=== PATIENT | female | born 1980 | race Two or more races ===

== ENCOUNTER 2024-09-30 08:33 | Emergency (ER) | payer MEDICAID, OTHER ==
[~2024-09-30] VITALS: Ht 167.6 cm; Wt 114.9 kg
--- NOTE | 2024-09-30 09:28 | DVH ---
CHEST RADIOGRAPH Indication:COUGH Technique: Frontal and lateral view of the chest was obtained Comparison: None FINDINGS: Lines and Tubes: None Lungs: Clear Pleura: No effusion. No pneumothorax. Cardiomediastinal contours: Unremarkable Bones: Unremarkable IMPRESSION: No evidence of acute disease.
[2024-09-30 09:38] LABS: Basophils # (auto) 0 10 ^3/uL (0-0.2); Basophils % (auto) 0.4 % (0.0-2.0); Eosinophils # (auto) 0.1 10 ^3/uL (0-0.8); Eosinophils % (auto) 1.2 % (0.0-7.0); Hematocrit 41.3 % (36.0-46.0); Hemoglobin 13.9 g/dL (12.2-16.2); Lymphocytes # (auto) 1.8 10 ^3/uL (0.4-5.4); Lymphocytes % (auto) 15.8 % (10.0-50.0); Mean Corpuscular Hemoglobin 28.6 pg (28.0-32.0); Mean Corpuscular Hgb Conc. 33.6 g/dL (32.0-36.0); Monocytes # (auto) 0.5 10 ^3/uL (0-1.3); Monocytes % (auto) 4.2 % (0.0-12.0); Neutrophils # (auto) 8.8 10 ^3/uL (1.6-8.6); Neutrophils % (auto) 78.4 % (37.0-80.0); Nucleated Red Blood Cells % 0.1 %; Platelet Count (auto) 220 10^3/uL (140-450); Red Blood Cells 4.86 10^6/uL (4.0-5.20); Red Cell Distribution Width 15.2 % (11.8-14.3); White Blood Cell 11.2 10^3/uL (4.4-10.8)
--- NOTE | 2024-09-30 09:41 | ED.PDOC ---
SOB-HPI HPI Comments A 44 YEAR OLD FEMALE PRESENTS TO THE ED WITH COMPLAINT OF FLU-LIKE SYMPTOMS. PATIENT STATES SHE HAS BEEN EXPERIENCING A COUGH, CONGESTION, SORE THROAT, AND BODY ACHES FOR THE PAST 4 DAYS. PATIENT DENIES FEVER, CHILLS, SHORTNESS OF BREATH, CHEST PAIN, ABDOMINAL PAIN, NAUSEA, VOMITING, HEADACHE, OR OTHER CO MPLAINTS. NO OTHER SYMPTOMS OR MODIFYING FACTORS AT THIS TIME. PATIENT IS ALERT, ORIENTED X 4, AND HAS STEADY GAIT. Chief Complaint: Cough Time Seen by MD: 08:56 Reviewed notes: Nurses Notes, Medications, Allergies Information Source: Patient Mode of Arrival: Ambulatory Severity: Moderate Timing: Days Duration: Since onset, Days Context: Spontaneous Onset PE Risk Factors: None History of: None Prehospital treatment: None Modifying Factors: Nothing Associated Signs and Symptoms: Cough, Nasal Congestion, Sore Throat If cough with SOB: Productive Past Medical History PAST MEDICAL HISTORY: Denies Surgical History: Denies all surgeries HEAD OF TRANSPORT LOGISTICS History: No Pertinent HEAD OF TRANSPORT LOGISTICS History Family History Family History: Reviewed,noncontributory to illness Social History Smoker: Non-Smoker Alcohol: Denies ETOH Use Drugs: Denies Drug Use Lives In: Home Constitutional: reports: fever; denies: chills, diaphoresis, fatigue, malaise, sweats, weakness, others EENTM: reports: nose congestion, throat pain, throat swelling; denies: blurred vision, double vision, ear bleeding, ear discharge, ear drainage, ear pain, ear ringing, eye pain, eye redness, hearing loss, mouth pain, mouth swelling, nasal discharge, nose bleeding, nose pain, photophobia, tearing, voice changes, others Respiratory: reports: cough; denies: hemoptysis, orthopnea, SOB at rest, shortness of breath, SOB with excertion, stridor, wheezing, others Cardiovascular: denies: chest pain, dizzy spells, diaphoresis, Dyspnea on exertion, edema, irregular heart beat, left arm pain, lightheadedness, palpitations, PND, syncope, others Gastrointestinal: denies: abdomen distended, abdominal pain, blood streaked bowels, constipated, diarrhea, dysphagia, difficulty swallowing, hematemesis, melena, nausea, poor appetite, poor fluid intake, rectal bleeding, rectal pain, vomiting, others Genitourinary: denies: abnormal vagina bleeding, burning, dyspareunia, dysuria, flank pain, frequency, hematuria, incontinence, pain, , vagina discharge, urgency, others Neurological: denies: dizziness, fainting, headache, left sided numbness, left sided weakness, numbness, paresthesia, pre-existing deficit, right sided numbness, right sided weakness, seizure, speech problems, tingling, tremors, weakness, others Musculoskeletal: denies: back pain, gout, joint pain, joint swelling, muscle pain, muscle stiffness, neck pain, others Integumetry: denies: bruises, change in color, change in hair/nails, dryness, laceration, lesions, lumps, rash, wounds, others Allergic/Immunocompromised: denies: Difficulty Healing, Frequent Infections, Hives, Itching, others Hematologic/Lymphatic: denies: anemia, blood clots, easy bleeding, easy bruising, swollen glands, others Endocrine: denies: excessive hunger, excessive sweating, excessive thirst, excessive urination, flushing, intolerance to cold, intolerance to heat, unexplained weight gain, unexplained weight loss, others Psychiatric: denies: anxiety, bipolar disorder, depression, hopeless, panic disorder, schizophrenia, sleepless, suicidal, others All Other Systems: Reviewed and Negative Physical Exam General Appearance: No Apparent Distress, Obese HEENT: PERRL/EOMI, Pharyngeal Erythema (TONSILLAR SWELLING, NO EXUDATES. ), TMs Normal Neck: Full Range of Motion, Non-Tender, Normal, Normal Inspection Respiratory: Chest Non-Tender, Expiration, No Accessory Muscle Use, No Respiratory Distress, Rhonchi Cardiovascular: No Edema, No JVD, No Murmur, No Gallop, Normal Peripheral Pulses, Regular Rate/Rhythm Breast Exam: Deferred Gastrointestinal: No Organomegaly, Non Tender, No Pulsatile Mass, Normal Bowel Sounds, Soft Genitalia: Deferred Pelvic: Deferred Rectal: Deferred Extremities: No calf tenderness, Normal capillary refill, Normal inspection, Normal range of motion, Non-tender, No pedal edema Musculoskeletal : Apperance: Normal Neurologic: Alert, software requirements engineer II-XII nml as Tested, No Motor Deficits, Normal Affect, Normal Mood, No Sensory Deficits Cerebellar Function: Normal Reflexes: Normal Skin: Dry, Normal Color, Warm Peripheral Pulses: 2+ carotid (R), 2+ carotid (L) Lymphatic: No Adenopathy Was a procedure done? Was a procedure done?: No Differential Dx Differential Diagnosis: Bronchitis, Pneumonia, Sinusitis, Allergic Rhinitis, Otitis Media, Pharyngitis, URI X-Ray, Labs, Meds, VS Vital Signs Date Time Temp Pulse Resp B/P (MAP) Pulse Ox O2 Delivery O2 Flow Rate FiO2 09/30/24 09:56 98.7 98 20 147/94 (111) 98 98.7 09/30/24 09:56 89 20 98 Room Air 09/30/24 09:00 98.7 89 20 147/94 (111) 98 Lab Test 09/30/24 09:22 09/30/24 09:14 Range/Units Influenza Type A Antigen Negative Negative Influenza Type B Antigen Negative Negative SARS-CoV-2 Antigen (Rapid) Negative NEGATIVE White Blood Count 11.2 H 4.4-10.8 10^3/uL Red Blood Count 4.86 4.0-5.20 10^6/uL Hemoglobin 13.9 12.2-16.2 g/dL Hematocrit 41.3 36.0-46.0 % Mean Corpuscular Volume 85.0 80.0-100.0 fL Mean Corpuscular Hemoglobin 28.6 28.0-32.0 pg Mean Corpuscular Hemoglobin Concent 33.6 32.0-36.0 g/dL Red Cell Distribution Width 15.2 H 11.8-14.3 % Platelet Count 220 140-450 10^3/uL Mean Platelet Volume 9.3 6.9-10.8 fL Neutrophils (%) (Auto) 78.4 37.0-80.0 % Lymphocytes (%) (Auto) 15.8 10.0-50.0 % Monocytes (%) (Auto) 4.2 0.0-12.0 % Eosinophils (%) (Auto) 1.2 0.0-7.0 % Basophils (%) (Auto) 0.4 0.0-2.0 % Neutrophils # (Auto) 8.8 H 1.6-8.6 10 ^3/uL Lymphocytes # (Auto) 1.8 0.4-5.4 10 ^3/uL Monocytes # (Auto) 0.5 0-1.3 10 ^3/uL Eosinophils # (Auto) 0.1 0-0.8 10 ^3/uL Basophils # (Auto) 0 0-0.2 10 ^3/uL Nucleated Red Blood Cells 0.1 % Sodium Level 141 136-145 mmol/L Potassium Level 4.0 3.5-5.1 mmol/L Chloride Level 108 H 98-107 mmol/L Carbon Dioxide Level 28 20-31 mmol/L Anion Gap 5 5-15 Blood Urea Nitrogen 8 L 9-23 mg/dL Creatinine 0.90 0.550-1.02 mg/dL Glomerular Filtration Rate Calc 81 >90 mL/min BUN/Creatinine Ratio 8.9 L 10.0-20.0 Serum Glucose 95 74-106 mg/dL Calcium Level 9.9 8.7-10.4 mg/dL Total Bilirubin 0.4 0.2-1.0 mg/dL Aspartate Amino Transferase (AST) 11 L 13-40 U/L Alanine Aminotransferase (ALT) 10 7-40 U/L Alkaline Phosphatase 77 46-116 U/L Total Protein 7.7 5.7-8.2 g/dL Albumin 4.5 3.2-4.8 g/dL Current Medications Medications (Trade) Dose Ordered Sig/Chas Route Start Time Stop Time Status Last Admin Ceftriaxone Sodium (Rocephin) 1,000 mg ONCE ONCE IM 09/30/24 10:00 09/30/24 10:01 DC 09/30/24 10:09 CHEST RADIOGRAPH Indication:COUGH Technique: Frontal and lateral view of the chest was obtained Comparison: None FINDINGS: Lines and Tubes: None Lungs: Clear Pleura: No effusion. No pneumothorax. Cardiomediastinal contours: Unremarkable Bones: Unremarkable IMPRESSION: No evidence of acute disease. ATED BY: HARLEY WHITE MD DICTATED DATE/TIME: 09/30/24923 SIGNED BY: HARLEY WHITE MD SIGNED DATE/TIME: 09/30/24923 CC: X-Ray, Labs, Meds, VS Comment LABS ORDERED: CBC, CMP, UA, COVID 19 ANTIGEN, INFLUENZA A/B REVIEWED AND INTERPRETED RESULTS: NEGATIVE TREATMENT: ROCEPHIN 1 G IM Images Reviewed?: Images reviewed and evaluated by me Time of 1ST Reevaluation: 11:00 Reevaluation 1ST: Improved Patient Education/Counseling: Diagnosis, Treatment, Need For Follow Up Family Education/Counseling: Diagnosis, Treatment, Need For Follow Up Medical Screening: No EMC Exist At This Time Departure 1 Departure Time of Disposition: 11:00 Impression: Primary Impression: Acute bronchitis Qualified Codes: J20.9 - Acute bronchitis, unspecified Additional Impression: Acute tonsillitis Qualified Codes: J03.90 - Acute tonsillitis, unspecified Disposition: HOME / SELF CARE / HOMELESS Condition: Stable Additional Instructions: FOLLOW-UP WITH PCP IN 1 TO 2 DAYS. TAKE MEDICATIONS PRESCRIBED. RETURN TO ED FOR ANY NEW OR WORSENING SYMPTOMS. e-Prescriptions Promethazine-Dm (Promethazine Dm 6.25-15 mg/5Ml) 1 Mendy Mendy 5 ML PO TID, #180 ML Prov: IVONNE DENT 09/30/24 Cephalexin Monohydrate (Cephalexin) 500 Mg Cap 1 CAP PO QID, #28 CAP Prov: IVONNE DENT 09/30/24 Discharged With: Self Critical Care Note Critical Care Time?: No Stability Stability form required: No Heart Score Heart Score: Heart Score Response (Comments) Value History N/A 0 EKG N/A 0 Age N/A 0 Risk Factors N/A 0 Troponin N/A 0 Total 0 I personally scribed for IVONNE DENT ([email or web address]) on 09/30/24 at 09:41. Electronically submitted by David Reno ([email or web address]). I personally scribed for IVONNE DENT ([email or web address]) on 09/30/24 at 09:48. Electronically submitted by David Reno ([email or web address]). I personally scribed for IVONNE DENT ([email or web address]) on 09/30/24 at 10:47. Electronically submitted by David Reno ([email or web address]). IVONNE DENT Sep 30, 2024 09:41
[2024-09-30 09:46] LABS: Alanine Aminotransferase 10 U/L (7-40); Albumin 4.5 g/dL (3.2-4.8); Alkaline Phosphatase 77 U/L (46-116); Anion Gap 5 (5-15); Aspartate Aminotransferase 11 U/L (13-40); BUN/Creatinine Ratio 8.9 (10.0-20.0); Bilirubin, Total 0.4 mg/dL (0.2-1.0); Blood Urea Nitrogen 8 mg/dL (9-23); Calcium 9.9 mg/dL (8.7-10.4); Carbon Dioxide 28 mmol/L (20-31); Chloride 108 mmol/L (98-107); Glucose 95 mg/dL (74-106); Sodium 141 mmol/L (136-145); Total Protein 7.7 g/dL (5.7-8.2)
[2024-09-30 09:56] VITALS: BP 147/94; PULSE 89; RESP 20; TEMP 98.7; O2SAT 98
[2024-09-30 10:06] LABS: Rapid Influenza A Negative (Negative); Rapid Influenza B Negative (Negative)
[2024-09-30] MEDS: cefTRIAXone SOD 1,000 MG VL IM ONE (10:09)
[2024-09-30 10:39] LABS: COVID19 ANTIGEN SOFIA FIA NEGATIVE (NEGATIVE)
[2024-09-30] MEDS ORDERED: PROM1SOL4 PO (10:49)
[2024-09-30] MEDS ORDERED: CEPH500C PO (10:49)
== END 2024-09-30 10:50 | disposition home or self-care (01) ==
LOC: ER 08:33
DX: J20.9 Acute bronchitis, unspecified (principal); J03.90 Acute tonsillitis, unspecified; Z20.822 Contact with and (suspected) exposure to COVID-19
CPT/HCPCS: 36415; 71046; 80053; 85025; 87426; 87804; 96372; 99284; J0696

== ENCOUNTER 2025-02-20 09:04 | Inpatient (IN) | payer MEDICAID, OTHER ==
[~2025-02-20] VITALS: Ht 170.2 cm; Wt 113.5 kg
[~2025-02-20 09:04] MED LIST: CEPH500C PO; PROM1SOL4 PO
[2025-02-20] MEDS ORDERED: cefTRIAXone 1GM/50ML D5W 50 ML IV ONE (09:30)
[2025-02-20] MEDS ORDERED: AZITHROMYCIN 500MG/ 250ML 250 ML IV ONE (09:30)
--- NOTE | 2025-02-20 09:35 | ED.PDOC ---
SOB-HPI HPI Comments 44 year old female presents to the ED with a chief complaint of shortness of breath onset 1 week. Patient states she has been experiencing shortness of breath for the past weak, worsen with cough. She is also experiencing chest pain, chills, fatigue, generalized weakness, nausea. Denies any PMHx as well as dizziness, headache, vomiting, diarrhea, dysuria. No other symptoms or modifying factors present at this time. Chief Complaint: Shortness of Breath Time Seen by MD: 09:14 Reviewed notes: Medications, Allergies Information Source: Patient Mode of Arrival: Ambulatory Severity: Moderate Timing: Weeks Duration: Since onset Context: At Rest PE Risk Factors: None History of: None Prehospital treatment: None Modifying Factors: Nothing Associated Signs and Symptoms: Cough, Chest Pain Quality: Sharp Radiation: No Radiation If cough with SOB: Productive Past Medical History PAST MEDICAL HISTORY: Denies Surgical History: Denies all surgeries PIPE SMOKING MACHINE OPERATOR History: No Pertinent PIPE SMOKING MACHINE OPERATOR History Family History Family History: Reviewed,noncontributory to illness, No family hx of Cancer, No family hx of DM, No family hx of Heart cameron, No family hx of HTN, No family hx ofKidney cameron, No family hx of Liver cameron, No family hx of Lung cameron, No family hx of Stroke Social History Smoker: Non-Smoker Alcohol: Denies ETOH Use Drugs: Denies Drug Use Lives In: Home Constitutional: reports: chills, fatigue, weakness; denies: diaphoresis, fever, malaise, sweats, others EENTM: denies: blurred vision, double vision, ear bleeding, ear discharge, ear drainage, ear pain, ear ringing, eye pain, eye redness, hearing loss, mouth pain, mouth swelling, nasal discharge, nose bleeding, nose congestion, nose pain, photophobia, tearing, throat pain, throat swelling, voice changes, others Respiratory: reports: cough, shortness of breath; denies: hemoptysis, orthopnea, SOB at rest, SOB with excertion, stridor, wheezing, others Cardiovascular: reports: chest pain; denies: dizzy spells, diaphoresis, Dyspnea on exertion, edema, irregular heart beat, left arm pain, lightheadedness, palpitations, PND, syncope, others Gastrointestinal: denies: abdomen distended, abdominal pain, blood streaked bowels, constipated, diarrhea, dysphagia, difficulty swallowing, hematemesis, melena, nausea, poor appetite, poor fluid intake, rectal bleeding, rectal pain, vomiting, others Genitourinary: denies: abnormal vagina bleeding, burning, dyspareunia, dysuria, flank pain, frequency, hematuria, incontinence, pain, , vagina discharge, urgency, others Neurological: reports: weakness; denies: dizziness, fainting, headache, left sided numbness, left sided weakness, numbness, paresthesia, pre-existing deficit, right sided numbness, right sided weakness, seizure, speech problems, tingling, tremors, others Musculoskeletal: denies: back pain, gout, joint pain, joint swelling, muscle pain, muscle stiffness, neck pain, others Integumetry: denies: bruises, change in color, change in hair/nails, dryness, laceration, lesions, lumps, rash, wounds, others Allergic/Immunocompromised: denies: Difficulty Healing, Frequent Infections, Hives, Itching, others Hematologic/Lymphatic: denies: anemia, blood clots, easy bleeding, easy bruising, swollen glands, others Endocrine: denies: excessive hunger, excessive sweating, excessive thirst, excessive urination, flushing, intolerance to cold, intolerance to heat, unexplained weight gain, unexplained weight loss, others Psychiatric: denies: anxiety, bipolar disorder, depression, hopeless, panic disorder, schizophrenia, sleepless, suicidal, others All Other Systems: Reviewed and Negative Physical Exam General Appearance: Moderate Distress, Normal HEENT: Normal ENT Inspection, Pharynx Normal, TMs Normal Neck: Full Range of Motion, Non-Tender, Normal, Normal Inspection Respiratory: Accessory Muscle Use, Chest Non-Tender, Respiratory Distress, Wheezing Cardiovascular: No Edema, No JVD, No Murmur, No Gallop, Normal Peripheral Pulses, Tachycardia Breast Exam: Deferred Gastrointestinal: No Organomegaly, Non Tender, No Pulsatile Mass, Normal Bowel Sounds, Soft Genitalia: Deferred Pelvic: Deferred Rectal: Deferred Extremities: No calf tenderness, Normal capillary refill, Normal inspection, Normal range of motion, Non-tender, No pedal edema Musculoskeletal : Apperance: Normal Neurologic: Alert, rn registry II-XII nml as Tested, No Motor Deficits, Normal Affect, Normal Mood, No Sensory Deficits Cerebellar Function: Normal Reflexes: Normal Skin: Dry, Normal Color, Warm Peripheral Pulses: 3+ Radial (R), 3+ Radial (L) Lymphatic: No Adenopathy Was a procedure done? Was a procedure done?: No Differential Dx Differential Diagnosis: Anxiety, Asthma, Bronchitis, CHF, COPD X-Ray, Labs, Meds, VS Vital Signs Date Time Temp Pulse Resp B/P (MAP) Pulse Ox O2 Delivery O2 Flow Rate FiO2 02/20/25 09:27 77 02/20/25 09:10 97.9 104 18 145/91 (109) 100 97.9 Lab Test 02/20/25 09:30 Range/Units White Blood Count 4.7 4.4-10.8 10^3/uL Red Blood Count 4.64 4.0-5.20 10^6/uL Hemoglobin 13.4 12.2-16.2 g/dL Hematocrit 38.5 36.0-46.0 % Mean Corpuscular Volume 83.0 80.0-100.0 fL Mean Corpuscular Hemoglobin 28.9 28.0-32.0 pg Mean Corpuscular Hemoglobin Concent 34.9 32.0-36.0 g/dL Red Cell Distribution Width 15.2 H 11.8-14.3 % Platelet Count 152 140-450 10^3/uL Mean Platelet Volume 9.5 6.9-10.8 fL Neutrophils (%) (Auto) 68.2 37.0-80.0 % Lymphocytes (%) (Auto) 22.4 10.0-50.0 % Monocytes (%) (Auto) 8.7 0.0-12.0 % Eosinophils (%) (Auto) 0.3 0.0-7.0 % Basophils (%) (Auto) 0.4 0.0-2.0 % Neutrophils # (Auto) 3.2 1.6-8.6 10 ^3/uL Lymphocytes # (Auto) 1.1 0.4-5.4 10 ^3/uL Monocytes # (Auto) 0.4 0-1.3 10 ^3/uL Eosinophils # (Auto) 0 0-0.8 10 ^3/uL Basophils # (Auto) 0 0-0.2 10 ^3/uL Nucleated Red Blood Cells 0.3 % Sodium Level 140 136-145 mmol/L Potassium Level 3.9 3.5-5.1 mmol/L Chloride Level 112 H 98-107 mmol/L Carbon Dioxide Level 21 20-31 mmol/L Anion Gap 7 5-15 Blood Urea Nitrogen 9 9-23 mg/dL Creatinine 0.86 0.550-1.02 mg/dL Glomerular Filtration Rate Calc 86 >90 mL/min BUN/Creatinine Ratio 10.5 10.0-20.0 Serum Glucose 99 74-106 mg/dL Calcium Level 9.1 8.7-10.4 mg/dL Troponin I High Sensitivity < 3 L </=34 ng/L B-Type Natriuretic Peptide 6.29 0-100 pg/mL Influenza Type A Antigen Negative Negative Influenza Type B Antigen Positive Negative SARS-CoV-2 Antigen (Rapid) Negative NEGATIVE Current Medications Medications (Trade) Dose Ordered Sig/Chas Route Start Time Stop Time Status Last Admin Methylprednisolone Sodium Succinate (Solu Medrol) 125 mg ONCE ONCE IV 02/20/25 09:30 02/20/25 09:31 DC 02/20/25 10:01 Levofloxacin/ Dextrose 100 ml @ 100 mls/hr ONCE ONCE IV 02/20/25 09:45 02/20/25 10:44 DC 02/20/25 10:01 Ondansetron HCl (Zofran) 4 mg ONCE ONCE IV 02/20/25 11:00 02/20/25 11:01 DC 02/20/25 11:01 Patient alert. Complaining of cough shortness a breath. Has been having symptoms for the past week. Her saturation pristine. No leg swelling pain Initially heart rate was high but normalized. EKG reviewed does not show any acute process. Possible viral infection. Possible pneumonitis. Possible pneumonia. Establish intravenous access. Was given Levaquin. Reviewed her history. Explained to the patient. Continue cardiac monitoring. [place] [id number] Ph: [phone] DIAGNOSTIC IMAGING Diagnostic Imaging Report : [id number] Signed PATIENT: CHRISTINE PINON ACCT: [id number] UNIT: [id number] : 1980 LOC: ER ROOM / BED: / AGE / SEX: 44 / F ADM STATUS: REG ER SERVICE 9 ORDERING PHYSICIAN: JASMYNE NEGRETE MD PROCEDURE(s): CXRP - CHEST PORTABLE REASON: sob ORDER NUMBER(s): [id number], ACCESSION NUMBER(s): [id number] INDICATION: sob TECHNIQUE: Frontal view of the chest. COMPARISON: None FINDINGS: . The heart and mediastinal contours are grossly unremarkable. There is no evidence of pleural disease. The lungs are clear. The bony structures of the chest are intact without fracture. IMPRESSION: 1. No evidence of acute disease. ATED BY: KOKO GRANADOS MD DICTATED DATE/TIME: 02/20/25 115 SIGNED BY: KOKO GRANADOS MD SIGNED DATE/TIME: 02/20/25 115 CC: Time of 1ST Reevaluation: 09:44 Reevaluation 1ST: Unchanged Patient Education/Counseling: Diagnosis, Treatment, Prognosis Family Education/Counseling: No Family Present Additional Information The following tests were ordered, and results were reviewed by me: TROP;, CBC, BMP, XY CHEST, UA, BMP, RAPID INFLUENZA, COVID, EKG I reviewed and agreed with the following test results read by other providers: XY CHEST I discussed treatment and results with medical personnel and: Patient Comprehensive systems review obtained and negative except for what is stated in the HPI. Departure 1 Departure Time of Disposition: 09:44 Impression: Primary Impression: Pneumonitis Disposition: ADMITTED INPATIENT Admit to: Med Surg Condition: Guarded Critical Care Note Critical Care Time?: Yes (90 min-critical care time only) Critical care comment: Acute respiratory distress with pneumonitis Stability Stability form required: No Heart Score Heart Score: Heart Score Response (Comments) Value History Slightly Suspicious 0 EKG Normal 0 Age <45 0 Risk Factors No known risk factors 0 Troponin Normal limit 0 Total 0 I personally scribed for JASMYNE NEGRETE MD ([email or web address]) on 02/20/25 at 09:35. Electronically submitted by Shauna Vizcarra ([email or web address]). I personally scribed for JASMYNE NEGRETE MD ([email or web address]) on 02/20/25 at 10:23. Electronically submitted by Shauna Vizcarra ([email or web address]). I personally scribed for JASMYNE NEGRETE MD ([email or web address]) on 02/20/25 at 12:35. Electronically submitted by Shauna Vizcarra ([email or web address]). JASMYNE NEGRETE MD Feb 20, 2025 09:35
[2025-02-20 09:58] LABS: Basophils # (auto) 0 10 ^3/uL (0-0.2); Basophils % (auto) 0.4 % (0.0-2.0); Eosinophils # (auto) 0 10 ^3/uL (0-0.8); Eosinophils % (auto) 0.3 % (0.0-7.0); Hematocrit 38.5 % (36.0-46.0); Hemoglobin 13.4 g/dL (12.2-16.2); Lymphocytes # (auto) 1.1 10 ^3/uL (0.4-5.4); Lymphocytes % (auto) 22.4 % (10.0-50.0); Mean Corpuscular Hemoglobin 28.9 pg (28.0-32.0); Mean Corpuscular Hgb Conc. 34.9 g/dL (32.0-36.0); Monocytes # (auto) 0.4 10 ^3/uL (0-1.3); Monocytes % (auto) 8.7 % (0.0-12.0); Neutrophils # (auto) 3.2 10 ^3/uL (1.6-8.6); Neutrophils % (auto) 68.2 % (37.0-80.0); Nucleated Red Blood Cells % 0.3 %; Platelet Count (auto) 152 10^3/uL (140-450); Red Blood Cells 4.64 10^6/uL (4.0-5.20); Red Cell Distribution Width 15.2 % (11.8-14.3); White Blood Cell 4.7 10^3/uL (4.4-10.8)
[2025-02-20] MEDS: levoFLOXacin 500MG 100 ML IV ONE (10:01)
[2025-02-20] MEDS: methylPREDNISolone SOD SUCC 125 MG/2 ML VL IV ONE (10:01)
[2025-02-20 10:17] LABS: Anion Gap 7 (5-15); Carbon Dioxide 21 mmol/L (20-31); Potassium 3.9 mmol/L (3.5-5.1); Sodium 140 mmol/L (136-145)
[2025-02-20 10:18] LABS: Calcium 9.1 mg/dL (8.7-10.4)
[2025-02-20 10:19] LABS: Chloride 112 mmol/L (98-107)
[2025-02-20 10:23] LABS: BUN/Creatinine Ratio 10.5 (10.0-20.0); Blood Urea Nitrogen 9 mg/dL (9-23); Glucose 99 mg/dL (74-106)
--- NOTE | 2025-02-20 10:45 | ECG ---
[facility] Test Date: 2025-02-20 Test Time: 09:27:52 Pat Name: KATHY JEAN Department: ER Room: 0283 Gender: F Art Coordinator: GP : 1980 Requested By: JASMYNE NEGRETE Order Number: [id number] Reading MD: Kobe Ren Measurements Intervals [place] Rate: 77 P: 75 WV: 131 QRS: 78 QRSD: 76 T: 39 QT: 369 QTc: 418 Interpretive Statements Sinus rhythm Ventricular premature complex Baseline wander in lead(s) III,aVF,V3,V4,V6 Electronically Signed On 02-22-2025 22:06:49 PDT by Kobe Ren Please click the below link to view image of tracing.
[2025-02-20 10:56] LABS: Rapid Influenza A Negative (Negative); Rapid Influenza B Positive (Negative)
[2025-02-20] MEDS: ONDANSETRON HCL 4 MG/2 ML VIAL IV ONE (11:01)
[2025-02-20 11:31] LABS: COVID19 ANTIGEN SOFIA FIA NEGATIVE (NEGATIVE)
--- NOTE | 2025-02-20 11:56 | DVH ---
INDICATION: sob TECHNIQUE: Frontal view of the chest. COMPARISON: None FINDINGS: . The heart and mediastinal contours are grossly unremarkable. There is no evidence of pleural disea se. The lungs are clear. The bony structures of the chest are intact without fracture. IMPRESSION: 1. No evidence of acute disease.
[2025-02-20] MEDS ORDERED: HYDROcodone-ACET 5/325MG TAB PO PRN (13:45)
[2025-02-20] MEDS ORDERED: ACETAMINOPHEN 325 MG TAB PO PRN (13:45)
[2025-02-20] MEDS ORDERED: DOCUSATE SOD 100 MG CAP PO PRN (13:45)
--- NOTE | 2025-02-20 14:05 | DVHHP2 ---
History of Present Illness Reason for Visit: Shortness of breath History of Present Illness Ronald Pak is a 44-year-old female with no significant past medical history who came in for shortness of breath. Patient states she began feeling sick and short of breath about 1 week ago. She states it started last Thursday with shortness of breath, a productive cough, chills, body aches, fatigue, and fever. She was seen by her primary care provider and given a prescription. Her symptoms did not improve prompting her to come to the hospital. Hepatobiliary: Other (pancreatic cyst) Past Surgical History: None Smoke: <1 pack per day ALCOHOL: rare Drugs: None Lives: with Family Domestic Violence: Neg Review of Systems Constitutional: Yes: Fever, Chills, Weakness, Malaise, Other (body aches); No: Sweats Eyes: No: Pain, Vision change, Conjunctivae inflammation, Eyelid inflammation, Other, Redness ENT: No: Ear pain, Ear discharge, Nose pain, Nose discharge, Nose congestion, Mouth pain, Mouth swelling, Throat pain, Throat swelling, Other Respiratory: Cough, Shortness of breath, SOB with excertion, Wheezing, Sputum; No: Dry, Hemoptysis, Pleuritic Pain, Wheezing, Other Cardiovascular: No: Chest Pain, Palpitations, Orthopnea, Paroxysmal Noc. Dyspnea, Edema, Lt Headedness, Other Gastrointestinal: No: Nausea, Vomiting, Abdominal Pain, Diarrhea, Constipation, Melena, Hematochezia, Other Genitourinary: No Dysuria, No Frequency, No Incontinence, No Hematuria, No Retention, No Other Musculoskeletal: No: other, neck pain, shoulder pain, arm pain, back pain, hand pain, leg pain, foot pain Skin: No: Rash, Lesions, Jaundice, Bruising, Other Neurological: No: Weakness, Numbness, Incoordination, Change in speech, Confusion, Seizures, Other Allergies: Coded Allergies: Acetaminophen (Verified Allergy, Unknown, 02/20/25) Fentanyl (Verified Allergy, Unknown, 02/20/25) Hydrocodone (Verified Allergy, Unknown, 02/20/25) Hydromorphone (Verified Allergy, Unknown, 02/20/25) Penicillins (Verified Allergy, Unknown, 02/20/25) Exam Vital Signs Vital Signs Date Time Temp Pulse Resp B/P (MAP) Pulse Ox O2 Delivery O2 Flow Rate FiO2 02/20/25 12:47 81 18 96 Room Air 02/20/25 12:47 97.8 122/71 (88) 97.8 General Appearance: Alert, Oriented X3, Cooperative, moderate distress HEENT: Atraumatic, PERRLA Respiratory: Other (Diminished breath sounds. productive cough) Cardiovascular: Regular rate, Normal S1, Normal S2, No murmurs Abdominal: Normal bowel sounds, Soft, No tenderness, No hepatospenomegaly Extremities: No clubbing, No cyanosis, No edema, Normal pulses, No tenderness/swelling Skin: No rashes, No breakdown, No significant lesion Neuro: Normal gait, Normal speech, Strength at 5/5 X4 ext, Normal tone Psych/Mental Status: Mental status NL, Mood NL Labs/Xrays Labs Test 02/20/25 09:30 Range/Units White Blood Count 4.7 4.4-10.8 10^3/uL Red Blood Count 4.64 4.0-5.20 10^6/uL Hemoglobin 13.4 12.2-16.2 g/dL Hematocrit 38.5 36.0-46.0 % Mean Corpuscular Volume 83.0 80.0-100.0 fL Mean Corpuscular Hemoglobin 28.9 28.0-32.0 pg Mean Corpuscular Hemoglobin Concent 34.9 32.0-36.0 g/dL Red Cell Distribution Width 15.2 H 11.8-14.3 % Platelet Count 152 140-450 10^3/uL Mean Platelet Volume 9.5 6.9-10.8 fL Neutrophils (%) (Auto) 68.2 37.0-80.0 % Lymphocytes (%) (Auto) 22.4 10.0-50.0 % Monocytes (%) (Auto) 8.7 0.0-12.0 % Eosinophils (%) (Auto) 0.3 0.0-7.0 % Basophils (%) (Auto) 0.4 0.0-2.0 % Neutrophils # (Auto) 3.2 1.6-8.6 10 ^3/uL Lymphocytes # (Auto) 1.1 0.4-5.4 10 ^3/uL Monocytes # (Auto) 0.4 0-1.3 10 ^3/uL Eosinophils # (Auto) 0 0-0.8 10 ^3/uL Basophils # (Auto) 0 0-0.2 10 ^3/uL Nucleated Red Blood Cells 0.3 % Sodium Level 140 136-145 mmol/L Potassium Level 3.9 3.5-5.1 mmol/L Chloride Level 112 H 98-107 mmol/L Carbon Dioxide Level 21 20-31 mmol/L Anion Gap 7 5-15 Blood Urea Nitrogen 9 9-23 mg/dL Creatinine 0.86 0.550-1.02 mg/dL Glomerular Filtration Rate Calc 86 >90 mL/min BUN/Creatinine Ratio 10.5 10.0-20.0 Serum Glucose 99 74-106 mg/dL Calcium Level 9.1 8.7-10.4 mg/dL Troponin I High Sensitivity < 3 L </=34 ng/L B-Type Natriuretic Peptide 6.29 0-100 pg/mL Influenza Type A Antigen Negative Negative Influenza Type B Antigen Positive Negative SARS-CoV-2 Antigen (Rapid) Negative NEGATIVE Chest X-Ray FINDINGS: The heart and mediastinal contours are grossly unremarkable. There is no evidence of pleural disease. The lungs are clear. The bony structures of the chest are intact without fracture. IMPRESSION: 1. No evidence of acute disease. Assessment/Plan Assessment/Plan Assessment: Influenza B, Acute respiratory distress, Plan: Admit to Med-Surg, IV antibiotics, IV steroids, Breathing treatments, Chest x-ray tomorrow morning, Tamiflu, Supplemental oxygen as needed, Plan discussed with: Patient My Orders Orders - MONTRELL HORAN RESEARCH NURSE Procedure Category Date Status Time Admit ADMIT 02/20/25 Transmitted 13:32 Code Status CODE 02/20/25 Transmitted 13:32 Hydrocodone-Acet PHA 02/20/25 Transmitted 5/325mg Tab ([place] 13:45 Ondansetron Hcl PHA 02/20/25 Transmitted (Zofran) 13:45 Docusate Sodium PHA 02/20/25 Transmitted Capsule ([place] 13:45 Complete Blood Count LAB 02/21/25 Verified 04:00 Comprehensive LAB 02/21/25 Verified Metabolic Panel 04:00 Condition: Serious AUDREY 02/20/25 Transmitted 13:32 Acetaminophen Tablet PHA 02/20/25 Transmitted (Tylenol Tablet) 13:45 Methylprednisolone PHA 02/20/25 Transmitted Sod Succ (Solu Medrol 22:00 Ipratropium Medneb PHA 02/20/25 Transmitted (Atrovent Medneb) 18:00 Albuterol Medneb PHA 02/20/25 Transmitted (Ventolin Medneb) 18:00 Azithromycin 500mg/ PHA 02/21/25 Transmitted 250ml (Zithromax 50 10:00 Ceftriaxone Ivpb PHA 02/21/25 Transmitted Rocephin 09:00 NS PHA 02/20/25 Transmitted 13:45 Date of Service: Feb 20, 2025 Billing Provider: MONTRELL HORAN Common Visit Codes: [id number] INP/OBS CARE (MOD) MONTRELL HORAN Feb 20, 2025 14:05
[2025-02-20] MEDS: SODIUM CHLORIDE 0.9% 1,000 ML IV ONE (14:13)
[2025-02-20 14:29] VITALS: BP 131/66; PULSE 78; RESP 18; O2SAT 96
[2025-02-20] MEDS: NICOTINE 7MG/24HR TOPICAL PATCH TD ONE (15:47)
[2025-02-20 16:50] VITALS: PULSE 84; RESP 19; O2SAT 94
[2025-02-20] MEDS: ONDANSETRON HCL 4 MG/2 ML VIAL IV PRN (17:28)
[2025-02-20] MEDS: MORPHINE SULFATE INJ 2 MG/ml SYRG IV PRN (17:29)
[2025-02-20 18:33] VITALS: PULSE 81; RESP 24; O2SAT 94
[2025-02-20] MEDS: ALBUTEROL SULF 2.5 MG/0.5ML(0.5%) NEB SOLN NEB SCH (18:33)
[2025-02-20] MEDS: IPRATROPIUM BROM 0.5 MG/2.5ML INH SOL NEB SCH (18:33)
[2025-02-20 18:39] VITALS: PULSE 74; RESP 20; O2SAT 100
[2025-02-20 19:30] VITALS: PULSE 98; RESP 19; O2SAT 94
[2025-02-20] MEDS: OSELTAMIVIR 75 MG CAP PO SCH (22:01)
[2025-02-20] MEDS: methylPREDNISolone SOD SUCC 40 MG/ML VL IV SCH (22:01)
[2025-02-20 22:07] LABS: Urine Bacteria None Seen /hpf (None Seen)
[2025-02-20 22:27] LABS: Urine Blood 3+ /uL (Negative); Urine Clarity Turbid (Clear); Urine Color Light-Brown (Yellow); Urine Protein, UAD TRACE (Negative); Urine Specific Gravity 1.019 (1.001-1.035); Urine Squamous Epithelial Cell FEW /hpf (<5); Urine Urobilinogen Normal (Negative); Urine WBC 12 /HPF (0-5); Urine pH 6.5 (5.0-9.0)
[2025-02-21] VITALS (14 sets, daily range): BP systolic 118–146; BP diastolic 72–100; PULSE 66–85; RESP 14–19; TEMP 97.4–98.6; O2SAT 94–100
[2025-02-21] MEDS: MELATONIN 5 MG TAB PO ONE (01:53)
[2025-02-21] MEDS: diphenhdrAMINE HCL 25 MG CAP PO ONE (05:51)
[2025-02-21] MEDS ORDERED: cefTRIAXone 1GM/50ML D5W 50 ML IV SCH (09:00)
[2025-02-21 09:39] LABS: Basophils # (auto) 0 10 ^3/uL (0-0.2); Basophils % (auto) 0.2 % (0.0-2.0); Eosinophils # (auto) 0 10 ^3/uL (0-0.8); Hematocrit 39.1 % (36.0-46.0); Hemoglobin 13.3 g/dL (12.2-16.2); Lymphocytes # (auto) 1.1 10 ^3/uL (0.4-5.4); Lymphocytes % (auto) 27.3 % (10.0-50.0); Mean Corpuscular Hemoglobin 28.3 pg (28.0-32.0); Mean Corpuscular Volume 83.2 fL (80.0-100.0); Monocytes # (auto) 0.6 10 ^3/uL (0-1.3); Monocytes % (auto) 14.3 % (0.0-12.0); Neutrophils # (auto) 2.3 10 ^3/uL (1.6-8.6); Neutrophils % (auto) 58.2 % (37.0-80.0); Nucleated Red Blood Cells % 0.3 %; Platelet Count (auto) 160 10^3/uL (140-450); Red Cell Distribution Width 15.1 % (11.8-14.3); White Blood Cell 3.9 10^3/uL (4.4-10.8)
[2025-02-21 09:56] LABS: Alanine Aminotransferase 23 U/L (7-40); Albumin 4.3 g/dL (3.2-4.8); Alkaline Phosphatase 65 U/L (46-116); Aspartate Aminotransferase 16 U/L (13-40); BUN/Creatinine Ratio 10.8 (10.0-20.0); Calcium 9.2 mg/dL (8.7-10.4); Carbon Dioxide 24 mmol/L (20-31); Potassium 3.9 mmol/L (3.5-5.1); Sodium 138 mmol/L (136-145)
[2025-02-21 09:57] LABS: Bilirubin, Total 0.4 mg/dL (0.2-1.0)
[2025-02-21] MEDS: AZITHROMYCIN 500MG/ 250ML 250 ML IV SCH (10:00)
[2025-02-21 10:08] LABS: Blood Urea Nitrogen 8 mg/dL (9-23); Glucose 121 mg/dL (74-106)
[2025-02-21 10:18] LABS: Anion Gap 3 (5-15)
[2025-02-21 10:21] LABS: Chloride 111 mmol/L (98-107)
[2025-02-21] MEDS: NICOTINE 7MG/24HR TOPICAL PATCH TD SCH (10:59)
[2025-02-21] MEDS ORDERED: IPRATROPIUM BROM 0.5 MG/2.5ML INH SOL NEB PRN (12:15)
[2025-02-21] MEDS ORDERED: ALBUTEROL SULF 2.5 MG/0.5ML(0.5%) NEB SOLN NEB PRN (12:15)
[2025-02-21 13:08] LABS: Erythrocyte Sedimentation Rate 16 mm/hr (0-20)
[2025-02-21] MEDS: guaiFENesin-DM 100/10mg/5ml SYR PO PRN (13:23)
--- NOTE | 2025-02-21 14:56 | DVHPN2 ---
Subjective Patient continues to report having shortness of breath Reviewed: Care Plan, H&P, Labs, Medications Changes from previous H/P or p: No Changes General: Per HPI Eyes: No Pain, No Vision change, No Conjunctivae inflammation, No Eyelid inflammation, No Other, No Redness ENT: No Ear pain, No Ear discharge, No Nose pain, No Nose discharge, No Nose congestion, No Mouth pain, No Mouth swelling, No Throat pain, No Throat swelling, No Other Cardiovascular: No Chest Pain, No Palpitations, No Orthopnea, No Paroxysmal Noc. Dyspnea, No Edema, No Lt Headedness, No Other Respiratory: Cough; No Dry; Shortness of breath, SOB with excertion, Wheezing; No Hemoptysis, No Pleuritic Pain; Sputum; No Other Gastrointestinal: No Nausea, No Vomiting, No Abdominal Pain, No Diarrhea, No Constipation, No Melena, No Hematochezia, No Other Genitourinary: No Dysuria, No Frequency, No Incontinence, No Hematuria, No Retention, No Other Musculoskeletal: No other, No neck pain, No shoulder pain, No arm pain, No back pain, No hand pain, No leg pain, No foot pain Skin: No Rash, No Lesions, No Jaundice, No Bruising, No Other Objective Vitals Vital Signs Date Time Temp Pulse Resp B/P (MAP) Pulse Ox O2 Delivery O2 Flow Rate FiO2 02/21/25 13:00 97.8 76 17 142/76 (98) 98 97.8 02/21/25 10:00 Room Air* 0 21 Intake/Output Intake and Output 02/21/25 07:00 Intake Total 1300 ml Balance 1300 ml Intake Oral 200 ml IV Total 1100 ml General Appearance: Alert, Oriented X3, Cooperative, mild distress HEENT: Atraumatic, PERRLA Cardiovascular: Normal S1, Normal S2 Abdomen: Normal bowel sounds, Soft, No tenderness Musculoskeletal: Normal sensory function, Normal motor function Neuro: Normal gait, Normal speech Psych/Mental Status: Mental status NL, Mood NL Medications Current Medications Medications Dose Ordered Sig/Chas Route Start Time Stop Time Status Last Admin Dose Admin Ondansetron HCl 4 mg Q4HP PRN IV 02/20/25 13:45 02/20/25 17:28 4 MG Docusate Sodium 100 mg BIDPRN PRN PO 02/20/25 13:45 Acetaminophen 650 mg Q6HP PRN PO 02/20/25 13:45 Hold Methylprednisolone Sodium Succinate 40 mg BID IV 02/20/25 22:00 02/21/25 10:58 40 MG Ipratropium [place] 0.5 mg Q6HWA NEB 02/20/25 18:00 Hold 02/21/25 11:26 0.5 MG Albuterol 2.5 mg Q6HWA NEB 02/20/25 18:00 Hold 02/21/25 11:26 2.5 MG Azithromycin 250 ml @ 125 mls/hr DAILY IV 02/21/25 10:00 02/21/25 10:00 125 MLS/HR Ceftriaxone Sodium 50 ml @ 100 mls/hr DAILY@09 IV 02/21/25 09:00 Hold Nicotine 1 patch DAILY TD 02/21/25 10:00 02/21/25 10:59 1 PATCH Morphine Sulfate 2 mg Q6HPRN PRN IV 02/20/25 16:45 02/21/25 06:27 2 MG Oseltamivir Phosphate 75 mg Q12HR PO 02/20/25 22:00 02/25/25 21:59 02/21/25 10:59 75 MG Albuterol 2.5 mg Q3HPRN PRN NEB 02/21/25 12:15 Ipratropium [place] 0.5 mg Q3HPRN PRN NEB 02/21/25 12:15 Guaifenesin/ Dextromethorphan 10 ml Q4HP PRN PO 02/21/25 12:30 02/21/25 13:23 10 ML Laboratory Results Laboratory Tests 02/21/25 09:27 Chemistry Test 02/21/25 09:27 Albumin 4.3 g/dL (3.2-4.8) Calcium Level 9.2 mg/dL (8.7-10.4) Total Protein 7.0 g/dL (5.7-8.2) LFT Test 02/21/25 09:27 Alanine Aminotransferase (ALT) 23 U/L (7-40) Alkaline Phosphatase 65 U/L (46-116) Aspartate Amino Transferase (AST) 16 U/L (13-40) Total Bilirubin 0.4 mg/dL (0.2-1.0) Urinalysis Test 02/20/25 22:06 Urine Color Light-brown (Yellow) Urine Clarity Turbid (Clear) H Urine pH 6.5 (5.0-9.0) Urine Specific [place] 1.019 (1.001-1.035) Urine Protein Trace (Negative) H Urine Ketones 1+ (Negative) H Urine Blood 3+ /uL (Negative) H Urine Nitrite Negative (Negative) Urine Bilirubin Negative (Negative) Urine Urobilinogen Normal mg/dL (Negative) Urine Leukocyte Esterase 1+ /uL (Negative) Urine RBC 3159 /hpf (0 - 4) Urine Microscopic WBC 12 /HPF (0-5) H Urine Squamous Epithelial Cells Few /hpf (<5) Urine Bacteria None seen /hpf (None Seen) Urine Glucose Normal mg/dL (Normal) Labs and/or images reviewed: Labs reviewed by me, Image(s) reviewed by me Assessment/Plan Assessment/Plan Patient: -acute hypoxic respiratory failure -influenza B -probable new onset of bronchial pneumonia . Failure of oral antibiotic therapy -COPD with exacerbation -nicotine dependence -obesity Plan: -change antibiotic therapy to Levaquin given patient was allergies -bronchodilators, add Pulmicort b.i.d. -cessation education -continue Tamiflu -antitussives -pain management -long discussion made with patient regarding plan of care. Patient verbalized understanding. Total time spent with patient and family regarding advance care plannin minutes. Total time spent with patient discussing and formulating plan of care: 35 minutes. This medical document was created using an electronic medical record system with [email or web address] dictation system. Although this document has been carefully reviewed, there may still be some phonetic and typographical errors. These areas are purely typographical due to imperfections of the software programs, and do not reflect any compromise in the patient's medical care. Plan discussed with: Patient, Other (RN) My Orders Orders - ASUNCION JUAREZ TITLE OFFICER Procedure Category Date Status Time Albuterol Medneb PHA 02/21/25 In Process (Ventolin Medneb) 12:15 Ipratropium Medneb PHA 02/21/25 In Process (Atrovent Medneb) 12:15 Guaifenesin-Dextromet PHA 02/21/25 In Process Liquid (Robitussin 12:30 Albuterol Medneb PHA 02/21/25 Transmitted (Ventolin Medneb) 18:00 Ipratropium Medneb PHA 02/21/25 Transmitted (Atrovent Medneb) 18:00 Levofloxacin Levaquin PHA 02/22/25 Transmitted 10:00 Date of Service: Feb 21, 2025 Billing Provider: ASUNCION JUAREZ NP Common Visit Codes: [id number] INP/OBS CARE(HIGH) ASUNCION JUAREZ NP Feb 21, 2025 14:56
[2025-02-21] MEDS: IPRATROPIUM BROM 0.5 MG/2.5ML INH SOL NEB SCH (18:56)
[2025-02-21] MEDS: ALBUTEROL SULF 2.5 MG/0.5ML(0.5%) NEB SOLN NEB SCH (18:57)
[2025-02-21] MEDS: BUDESONIDE (INHALATION) 0.5 MG/2 ML NEB NEB SCH (18:58)
[2025-02-22] VITALS (12 sets, daily range): BP systolic 126–145; BP diastolic 66–99; PULSE 64–86; RESP 16–19; TEMP 97.6–98.3; O2SAT 94–100
[2025-02-22] MEDS: levoFLOXacin 500MG 100 ML IV SCH (09:03)
[2025-02-22] MEDS ORDERED: TAMIFLU PO (15:47)
[2025-02-22] MEDS ORDERED: LEVO500T91 PO (15:47)
--- NOTE | 2025-02-22 16:03 | DVHDS2 ---
Discharge Summary Date of Admission Feb 20, 2025 at 13:32 Date of Discharge: Feb 22, 2025 Admitting Diagnosis SOB, acute respiratory failure Labs/Diagnostic Data: Laboratory Results Test 02/21/25 09:27 02/20/25 22:06 02/20/25 09:30 White Blood Count 3.9 10^3/uL (4.4-10.8) Red Blood Count 4.70 10^6/uL (4.0-5.20) Hemoglobin 13.3 g/dL (12.2-16.2) Hematocrit 39.1 % (36.0-46.0) Mean Corpuscular Volume 83.2 fL (80.0-100.0) Mean Corpuscular Hemoglobin 28.3 pg (28.0-32.0) Mean Corpuscular Hemoglobin Concent 34.0 g/dL (32.0-36.0) Red Cell Distribution Width 15.1 % (11.8-14.3) Platelet Count 160 10^3/uL (140-450) Mean Platelet Volume 9.3 fL (6.9-10.8) Neutrophils (%) (Auto) 58.2 % (37.0-80.0) Lymphocytes (%) (Auto) 27.3 % (10.0-50.0) Monocytes (%) (Auto) 14.3 % (0.0-12.0) Eosinophils (%) (Auto) 0.0 % (0.0-7.0) Basophils (%) (Auto) 0.2 % (0.0-2.0) Neutrophils # (Auto) 2.3 10 ^3/uL (1.6-8.6) Lymphocytes # (Auto) 1.1 10 ^3/uL (0.4-5.4) Monocytes # (Auto) 0.6 10 ^3/uL (0-1.3) Eosinophils # (Auto) 0 10 ^3/uL (0-0.8) Basophils # (Auto) 0 10 ^3/uL (0-0.2) Nucleated Red Blood Cells 0.3 % Erythrocyte Sedimentation Rate 16 mm/hr (0-20) Sodium Level 138 mmol/L (136-145) Potassium Level 3.9 mmol/L (3.5-5.1) Chloride Level 111 mmol/L (98-107) Carbon Dioxide Level 24 mmol/L (20-31) Anion Gap 3 (5-15) Blood Urea Nitrogen 8 mg/dL (9-23) Creatinine 0.74 mg/dL (0.550-1.02) Glomerular Filtration Rate Calc 103 mL/min (>90) BUN/Creatinine Ratio 10.8 (10.0-20.0) Serum Glucose 121 mg/dL (74-106) Calcium Level 9.2 mg/dL (8.7-10.4) Total Bilirubin 0.4 mg/dL (0.2-1.0) Aspartate Amino Transferase (AST) 16 U/L (13-40) Alanine Aminotransferase (ALT) 23 U/L (7-40) Alkaline Phosphatase 65 U/L (46-116) C-Reactive Protein High Sensitivity 0.23 mg/dL (<1.0) Total Protein 7.0 g/dL (5.7-8.2) Albumin 4.3 g/dL (3.2-4.8) Urine Color Light-brown (Yellow) Urine Clarity Turbid (Clear) Urine pH 6.5 (5.0-9.0) Urine Specific [place] 1.019 (1.001-1.035) Urine Protein Trace (Negative) Urine Ketones 1+ (Negative) Urine Blood 3+ /uL (Negative) Urine Nitrite Negative (Negative) Urine Bilirubin Negative (Negative) Urine Urobilinogen Normal mg/dL (Negative) Urine Leukocyte Esterase 1+ /uL (Negative) Urine RBC 3159 /hpf (0 - 4) Urine Microscopic WBC 12 /HPF (0-5) Urine Squamous Epithelial Cells Few /hpf (<5) Urine Bacteria None seen /hpf (None Seen) Urine Glucose Normal mg/dL (Normal) Troponin I High Sensitivity < 3 ng/L (</=34) B-Type Natriuretic Peptide 6.29 pg/mL (0-100) Influenza Type A Antigen Negative (Negative) Influenza Type B Antigen Positive (Negative) SARS-CoV-2 Antigen (Rapid) Negative (NEGATIVE) Other Laboratory Tests 02/21/25 09:27 Brief Hx & Hospital Course: History of Present Illness Ronald Pak is a 44-year-old female with no significant past medical history who came in for shortness of breath. Patient states she began feeling sick and short of breath about 1 week ago. She states it started last Thursday with shortness of breath, a productive cough, chills, body aches, fatigue, and fever. She was seen by her primary care provider and given a prescription. Her symptoms did not improve prompting her to come to the hospital. Course of hospitalization: Patient was started on Tamiflu 75 mg p.o. b.i.d.. Patient was also started on IV antibiotic therapy. Patient was noted to have severe inspiratory and expiratory wheezing. She does report having a significant history of nicotine dependence at this time. Today, the patient's respiratory status has improved dramatically. There was no further audible wheezing. Patient was on room air. Patient was agreeable to be discharged home and continue Tamiflu as well as antibiotic therapy with Levaquin 500 mg p.o. daily for additional six days. She was instructed follow up with her PCP in 1-2 weeks. Physical examination General: Alert and Oriented x3. No acute distress. Well-nourished. Obese Eyes: EOMI. Anicteric. HENT: Moist mucous membranes. Lungs: Clear to auscultation bilaterally. No accessory muscle use. Cardiovascular: Regular rate and rhythm. No murmur. No JVD. Abdomen: Soft, non-tender and non-distended. No palpable masses. Extremities: No edema. Non-tender. Skin: No rashes or lesions. Warm. Neurologic: No focal neurological deficits. CN II-XII grossly intact, but not individually tested. Psychiatric: Cooperative. Appropriate mood and affect. Total time spent with patient discussing and formulating plan of care: 35 minutes. This medical document was created using an electronic medical record system with [employer] dictation system. Although this document has been carefully reviewed, there may still be some phonetic and typographical errors. These areas are purely typographical due to imperfections of the software programs, and do not reflect any compromise in the patient's medical care. Condition at Discharge: Fair Final Diagnosis/Problems List COPD exacerbation Diagnosis: -acute hypoxic respiratory failure -influenza B -probable new onset of bronchial pneumonia . Failure of oral antibiotic therapy -COPD with exacerbation -nicotine dependence -obesity Discharge Disposition: Home with Health Services Discharge Instruct/Medications Diet: Regular Activity: No Restrictions, As Tolerated Follow Up/Referral: Follow up with PCP in 1-2 weeks Medications: Tamiflu 75mg po bid x 4 days Levaquin 500mg po daily x 6 days 36 Discharge Statement: "Patient was advised to return to the ER or call 911 if any headaches, dizziness, shortness of breath, chest pain, abdominal pain, bleeding, fevers, or worsening of medical condition. Patient was counseled about treatment plan, medications, possible side effects, patientverbalized understanding. All questions were answered to the best of my ability. This discharge took greater then 30 minutes in planning, reviewing documentation, counseling the patient, and discussing with other team members." ASSESSMENT ASSESSMENT Assessment COPD exacerbation Date of Service: Feb 22, 2025 Billing Provider: ASUNCION JUAREZ NP Common Visit Codes: [id number]/[id number] DISCH DAY >30min ASUNCION JUAREZ NP Feb 22, 2025 16:03
== END 2025-02-22 18:53 | disposition home or self-care (01) | DRG 133 ==
LOC: ER 09:04 → EEVIPCON 13:32 → MERGE 13:32 → OVERFLOW 13:32 → WEST WING 02-21 03:35
PROVIDERS: ADMIT Nurse Practitioner Acute Care; ATTEND Nurse Practitioner Acute Care
DX: J96.01 Acute respiratory failure with hypoxia (principal); J10.08 Influenza due to other identified influenza virus with other specified pneumonia; J15.69 Pneumonia due to other Gram-negative bacteria; K86.2 Cyst of pancreas; J44.1 Chronic obstructive pulmonary disease with (acute) exacerbation; J15.9 Unspecified bacterial pneumonia; J18.0 Bronchopneumonia, unspecified organism; E66.9 Obesity, unspecified; Z20.822 Contact with and (suspected) exposure to COVID-19; Z68.39 Body mass index [BMI] 39.0-39.9, adult; J98.4 Other disorders of lung; F17.200 Nicotine dependence, unspecified, uncomplicated; J44.0 Chronic obstructive pulmonary disease with (acute) lower respiratory infection; Z88.0 Allergy status to penicillin; Z88.5 Allergy status to narcotic agent; Z88.6 Allergy status to analgesic agent
CPT/HCPCS: 36415; 71045; 80048; 80053; 81001; 83880; 84484; 85025; 85652; 86141; 87426; 87804; 93005; 94640; G0378; J1956; J2405